=== PATIENT | male | born 1940 | race Caucasian/White ===

== ENCOUNTER 2022-07-04 10:31 | Observation (INO) ==
[2022-07-04] MEDS ORDERED: Lactated Ringers SEPSIS* BAG 2,260 ML IV ONE (11:02)
[2022-07-04] MEDS ORDERED: Lactated Ringers 1000 ml BAG 1,000 ML IV ONE (11:18)
[2022-07-04 11:59] LABS: ABS Eosinophils 0.6 10^3/ul (0-0.6); ABS Monocytes 0.4 10^3/ul (0-0.8); ABS Neutrophils 1.9 10^3/ul (1.5-7.7); Eosinophil % 11.7 %; Hematocrit 36 % (42-52); Lymphocyte % 40.2 %; Mean Corpuscular HGB Conc 33 g/dL (31-36); Mean Corpuscular Hemoglobin 30 pg (27-31); Mean Corpuscular Volume 91 fL (80-94); Mean Platelet Volume 9.3 fL (7.4-10.4); Nucleated Red Blood Cells % 0.1; Platelet Count 190 10^3/uL (150-450); Red Blood Count 3.96 10^6 /uL (4.18-5.48); Red Cell Distribution Width 17 % (10-15); White Blood Count 4.9 10^3/uL (3.5-10.8)
[2022-07-04 12:06] LABS: INR 1.08 (0.88-1.18)
[2022-07-04] MEDS ORDERED: Azithromycin 500 mg/250 ml NS 500 MG/250 ML BAG IVPB ONE (12:12)
[2022-07-04] MEDS ORDERED: cefTRIAXone 1 gm/50 mL D5W 1 GM/50 ML BAG IV ONE (12:12)
[2022-07-04 12:23] LABS: High Sens Troponin Baseline 17 pg/mL (<20)
[2022-07-04 12:24] LABS: ALT 95 U/L (7-52); AST 149 U/L (13-39); Albumin 3.7 g/dL (3.2-5.2); Albumin/Globulin Ratio 1.3 (1-3); Alkaline Phosphatase 324 U/L (35-149); Anion Gap 5 mmol/L (2-11); Blood Urea Nitrogen 15 mg/dL (6-24); C Reactive Protein 30.57 mg/L (<8.01); CO2 Carbon Dioxide 30 mmol/L (22-32); Calcium 8.7 mg/dL (8.6-10.3); Chloride 99 mmol/L (101-111); Creatinine, Serum 1.09 mg/dL (0.67-1.17); Globulin 2.9 g/dL (2-4); Glucose 94 mg/dL (70-100); Sodium 134 mmol/L (135-145); Total Protein 6.6 g/dL (6.4-8.9); eGFR CKD-EPI 67.8 (>60)
[2022-07-04 13:08] LABS: Acetaminophen < 15 mcg/mL
[2022-07-04 13:14] LABS: Urine Appearance Clear; Urine Bilirubin Negative (Negative); Urine Blood Negative (Negative); Urine Color Yellow; Urine Glucose Negative (Negative); Urine Ketones Negative (Negative); Urine Nitrite Negative (Negative); Urine Protein Negative (Negative); Urine Specific Gravity 1.013 (1.002-1.030); Urine Urobilinogen Negative (Negative)
[2022-07-04 13:16] LABS: High Sensitivity Troponin 1 Hr 15 pg/mL (<20)
[2022-07-04] MEDS ORDERED: dilTIAZem 30 MG TAB PO ONE (14:36)
[2022-07-04] MEDS ORDERED: Ondansetron 4 mg VIAL 2 MG/ML 2 ml VIAL IV PRN (15:03)
[2022-07-04] MEDS ORDERED: Albuterol 2.5mg/3 ml (0.083%) NEB.SOLN INH PRN (16:02)
[2022-07-04] MEDS ORDERED: DOXYcycline 100 MG in NS 0.9% 250 ml 250 ML IVPB SCH (17:00)
[2022-07-04] MEDS: Enoxaparin 80 MG/0.8 ML SYR SUBCUT SCH (17:17)
[2022-07-04] MEDS: dilTIAZem 30 MG TAB PO SCH (18:20)
[2022-07-04] MEDS: Albuterol/Ipratropium NEB.SOL (2.5/0.5 MG) 3 ML NEB.SOLN INH SCH (19:06)
[2022-07-05] MEDS: dilTIAZem 30 MG TAB PO SCH ×2 (00:05→05:33)
[2022-07-05] MEDS: Enoxaparin 80 MG/0.8 ML SYR SUBCUT SCH (05:35)
[2022-07-05 05:44] LABS: ABS Eosinophils 0.2 10^3/ul (0-0.6); ABS Lymphocytes 2.2 10^3/ul (1.0-4.8); ABS Monocytes 0.7 10^3/ul (0-0.8); ABS Neutrophils 2.2 10^3/ul (1.5-7.7); Eosinophil % 4.2 %; Hematocrit 34 % (42-52); Hemoglobin 11.1 g/dL (14.0-18.0); Lymphocyte % 41.4 %; Mean Corpuscular HGB Conc 32 g/dL (31-36); Mean Corpuscular Hemoglobin 30 pg (27-31); Mean Corpuscular Volume 92 fL (80-94); Mean Platelet Volume 9.4 fL (7.4-10.4); Nucleated Red Blood Cells % 0.1; Platelet Count 198 10^3/uL (150-450); Red Blood Count 3.73 10^6 /uL (4.18-5.48); Red Cell Distribution Width 17 % (10-15); White Blood Count 5.3 10^3/uL (3.5-10.8)
[2022-07-05 06:07] LABS: Calcium 8.3 mg/dL (8.6-10.3); Magnesium 1.5 mg/dL (1.9-2.7); Potassium 4.3 mmol/L (3.5-5.0)
[2022-07-05 06:13] LABS: Creatinine, Serum 1.08 mg/dL (0.67-1.17); eGFR CKD-EPI 68.5 (>60)
[2022-07-05] MEDS: Albuterol/Ipratropium NEB.SOL (2.5/0.5 MG) 3 ML NEB.SOLN INH SCH ×4 (08:06→18:36)
[2022-07-05] MEDS: Aspirin EC 81 mg TAB.EC (enteric coated) PO SCH (08:07)
[2022-07-05] MEDS ORDERED: Magnesium Sulfate IV 3 GM in NS 0.9% 100 ml BAG 100 ML IVPB ONE (08:11)
[2022-07-05] MEDS ORDERED: Remdesivir 100 mg Vial 200 MG in NS 0.9% 250 ml 210 ML IV ONE (11:00)
[2022-07-06 06:19] LABS: ABS Lymphocytes 1.6 10^3/ul (1.0-4.8); ABS Monocytes 0.7 10^3/ul (0-0.8); ABS Neutrophils 5.2 10^3/ul (1.5-7.7); Hematocrit 32 % (42-52); Lymphocyte % 21.3 %; Mean Corpuscular HGB Conc 34 g/dL (31-36); Mean Corpuscular Hemoglobin 31 pg (27-31); Mean Corpuscular Volume 91 fL (80-94); Nucleated Red Blood Cells % 0.1; Platelet Count 231 10^3/uL (150-450); Red Blood Count 3.57 10^6 /uL (4.18-5.48); Red Cell Distribution Width 17 % (10-15); White Blood Count 7.5 10^3/uL (3.5-10.8)
[2022-07-06 06:24] LABS: INR 1.36 (0.88-1.18)
[2022-07-06 06:50] LABS: Albumin 3.4 g/dL (3.2-5.2); Albumin/Globulin Ratio 1.2 (1-3); Calcium 8.5 mg/dL (8.6-10.3); Creatinine, Serum 1.17 mg/dL (0.67-1.17); Globulin 2.8 g/dL (2-4); Magnesium 2.1 mg/dL (1.9-2.7); Potassium 3.9 mmol/L (3.5-5.0); Total Bilirubin 0.5 mg/dL (0.2-1.0); Total Protein 6.2 g/dL (6.4-8.9); eGFR CKD-EPI 62.2 (>60)
[2022-07-06] MEDS: Albuterol/Ipratropium NEB.SOL (2.5/0.5 MG) 3 ML NEB.SOLN INH SCH (07:52)
[2022-07-06] MEDS ORDERED: Remdesivir 100 mg Vial 100 MG in NS 0.9% 250 ml 230 ML IV SCH (09:00)
[2022-07-06] MEDS: Aspirin EC 81 mg TAB.EC (enteric coated) PO SCH (09:28)
[2022-07-06] MEDS ORDERED: Albuterol HFA INHALER 8 gm MDI INH SCH (11:00)
[2022-07-06 11:34] VITALS: BP 108/61
== END 2022-07-06 11:30 | disposition home or self-care (01) ==
LOC: EDHOLD 10:31 → ED 10:31 → SUATTDRO 15:03 → EDHOLD 07-05 17:46 → MEDTELE 07-05 20:13
PROVIDERS: ADMIT Internal Medicine; ATTEND Internal Medicine